=== PATIENT | female | born 1990 | race Caucasian/White ===

== ENCOUNTER → 2017-05-01 | Outpatient (CLI) | payer OTHER ==
[~2017-05-01] MED LIST: CALC600T5 PO; FERR134T PO; PRENAT PO
== END | disposition home or self-care (01) ==
LOC: OBT 14:57
PROVIDERS: ATTEND Obstetrics & Gynecology
DX: O46.8X3 Other antepartum hemorrhage, third trimester (principal); Z3A.37 37 weeks gestation of pregnancy

== ENCOUNTER 2017-05-04 21:11 | Outpatient (CLI) | payer OTHER ==
[~2017-05-04] VITALS: Ht 154.9 cm; Wt 75.2 kg
[2017-05-04 22:00] VITALS: BP 110/69; PULSE 72; RESP 18
[2017-05-04] MEDS ORDERED: PRENAT PO (22:03)
[2017-05-04] MEDS ORDERED: CALC600T5 PO (22:03)
[2017-05-04] MEDS ORDERED: FERR134T PO (22:03)
--- NOTE | 2017-05-04 23:08 | RADRPT ---
PROCEDURE: US biophysical profile. CLINICAL INDICATION: Decreased motion. Vaginal bleeding. TECHNIQUE: Multiple sonographic images of the uterus were obtained. The images were revi ewed on a PACS workstation. COMPARISON: No prior studies are available for comparison. FINDINGS: There is a single live intrauterine gestation. heart rate is 131 beats per minute. The position is cephalic. The placenta is anterior grade II with no abruption or previa. The JOSE is 25.5 cm. (Normal = 5-20 cm.) Breathing Movement: 2 Gross Body Movement: 2 Tone: 2 Qualitative Amniotic Fluid Volume: 2 TOTAL: 8 IMPRESSION: 1. The biophysical score is 8/8. RPTAT: QQ .Iain Prieto MD, MD Date Time Electronically viewed and signed by .Iain Prieto MD, on 05/04/2017 23:08 .R/
--- NOTE | 2017-05-04 23:09 | RADRPT ---
PROCEDURE: US OB. CLINICAL INDICATION: Vaginal bleeding. . TECHNIQUE: Multiple sonographic images of the uterus were obtained. The images were revi ewed on a PACS workstation. COMPARISON: No prior studies are available for comparison. FINDINGS: There is a single live intrauterine gestation. heart rate is 144 beats per minute. Measurements were made in order to determine age. The results are as follows: BPD = 9.10 cm. HC = 32.47 cm. AC = 36.62 cm. FL = 6.83 cm. Estimated weight is 3500 nineteenth +/- 528 grams. LMP growth percentile is 78 %. Menstrual age by ultrasound dates is 37 weeks 2 days. The estimated date of delivery is 05/23/2017. Position is cephalic and placenta is anterior grade 1. There is no evidence for an abruption or plac enta previa. IMPRESSION: 1. Single live intrauterine gestation of 37 weeks 2 days menstrual age by ultrasound dates. 2. The estimated date of delivery is 05/23/2017. RPTAT: QQ .Iain Prieto MD, MD Date Time Electronically viewed and signed by .Iain Prieto MD, on 05/04/2017 23:09 .R/
--- NOTE | 2017-05-04 23:31 | PN ---
Triage Information Date/Time May 04, 2017 Weeks of Gestation 37 weeks and 6 days : 2 Para: 1 Diabetes: none Hypertention: none Additional information 26-year-old with IUP at 37 weeks and 6 days with care with Dr. Trujillo presented with complaint of spotting yesterday and today some pelvic pressure. She denies any leaking of fluid or decreased movement. Patient denies any complication during her course. She was seen yesterday 4 days ago in the office and was 1 cm dilated. Her initial exam in triage /-3. She had been observed for Couple hours and repeat exam does not show any cervical change. Patient denied feeling any cramps or contractions after p.o. hydration. Objective Vital Signs Date Time Temp Pulse Resp B/P Pulse Ox O2 Delivery O2 Flow Rate FiO2 05/04/17 22:00 98.5 72 18 110/69 Room Air Heart Rate: 130's Contractions: 6-10 Minutes Apart Results/Medications Imaging Results PROCEDURE: US biophysical profile. CLINICAL INDICATION: Decreased motion. Vaginal bleeding. TECHNIQUE: Multiple sonographic images of the uterus were obtained. The images were reviewed on a PACS workstation. COMPARISON: No prior studies are available for comparison. FINDINGS: There is a single live intrauterine gestation. heart rate is 131 beats per minute. The position is cephalic. The placenta is anterior grade II with no abruption or previa. The JOSE is 25.5 cm. (Normal = 5-20 cm.) Breathing Movement: 2 Gross Body Movement: 2 Tone: 2 Qualitative Amniotic Fluid Volume: 2 TOTAL: 8 IMPRESSION: 1. The biophysical score is 8/8. RPTAT: QQ PROCEDURE: US OB. CLINICAL INDICATION: Vaginal bleeding. . TECHNIQUE: Multiple sonographic images of the uterus were obtained. The images were reviewed on a PACS workstation. COMPARISON: No prior studies are available for comparison. FINDINGS: There is a single live intrauterine gestation. heart rate is 144 beats per minute. Measurements were made in order to determine age. The results are as follows: BPD = 9.10 cm. HC = 32.47 cm. AC = 36.62 cm. FL = 6.83 cm. Estimated weight is 3500 nineteenth +/- 528 grams. LMP growth percentile is 78 %. Menstrual age by ultrasound dates is 37 weeks 2 days. The estimated date of delivery is 05/23/2017. Position is cephalic and placenta is anterior grade 1. There is no evidence for an abruption or placenta previa. IMPRESSION: 1. Single live intrauterine gestation of 37 weeks 2 days menstrual age by ultrasound dates. 2. The estimated date of delivery is 05/23/2017. Assessment/Plan IUP at 37 weeks and 6 days Not in labor testing reassuring Borderline polyhydramnios Asymptomatic' etiology of polyhydramnios unclear Labor precaution and kick count and follow-up in 1-2 days with her primary action installer recommended Follow-up with JOSE discussed with the patient Patient verbalized understanding and agreed to comply with instruction. KEEGAN ALLEN MD May 04, 2017 23:31
--- NOTE | 2017-05-05 00:20 | TRIAGE ---
OB Triage Datetime Report Generated by CPN: 05/05/2017 00:20 Datetime: 05/04/2017 22:12 Stage of : OB Triage Labor Evaluation Frequency: 2-8 Monitor Mode: External Duration (sec)2399: 60 Quality: Mild Pattern: Normal: <= 5 Contractions in 10 Minutes Resting Tone [place]: Relaxed Heart Rate Monitor Mode: External US FHR Baseline Changes: No Baseline Change Variability: Moderate 6-25 bpm Accelerations: 15X15 Decelerations: None Category: Category I Vaginal Exam Dilatation (cms): 1.0 Effacement (%): 50 Station: -3 Exam By: E Binh Membrane Status: Intact Amniotic Fluid Amount: None Vaginal Bleeding: None Pool: Negative Nitrazine: Negative Cervix, Consistency: Moderate Cervix, Position: Posterior Presentation 'A': Cephalic Datetime: 05/04/2017 22:05 EGA: 37.6 Datetime: 05/04/2017 21:54 Time of Arrival: 05/04/2017 21:02 Arrived By: Ambulatory Arrived From: Home Chief Complaint: w/ c/o vag pressure now and spotting yesterday Movement: Present Contractions: Occasional Rupture of Membranes: Denies Vaginal Bleeding: None Vaginal Discharge: Present Recent Sexual Intercouse: Denies Abdominal Trauma: Not Applicable Patient Complaints: Cramping Time Provider Notified: 05/04/2017 22:22 Provider Notified: Dr Nelson Initial Plan: EFM, SVE Datetime: 05/04/2017 21:28 Stage of : OB Triage Maternal Assessment Level of Consciousness: Fully Conscious Headache: Denies Blurred Vision: No Respiratory Effort: Unlabored Nausea/Vomiting: Denies RUQ Epigastric Pain: Denies Facial Edema: None Monitor Mode: External Resting Tone [place]: Relaxed Heart Rate Monitor Mode: External US Comments: FHT 140 Pain Assessment Pain Scale: 1 Pain Presence: Intermittent Pain Type: Pressure Pain Location: Abdomen
== END 2017-05-04 23:38 | disposition home or self-care (01) ==
LOC: OBT 21:11 → L-D 21:14 → OBT 23:38
PROVIDERS: ATTEND Obstetrics & Gynecology
DX: O62.9 Abnormality of forces of labor, unspecified (principal); Z3A.37 37 weeks gestation of pregnancy
CPT/HCPCS: 76815; 76818; G0463

== ENCOUNTER 2017-05-06 14:42 | Inpatient (IN) | payer OTHER ==
[~2017-05-06] VITALS: Ht 154.9 cm; Wt 74.3 kg
[2017-05-06] MEDS ORDERED: LACTATED RINGER'S 1,000 ML IV SCH (15:19)
[2017-05-06 15:28] VITALS: Ht 154.9 cm; Wt 74.3 kg
[2017-05-06] MEDS ORDERED: BUTORPHANOL 2 MG INJ IV PRN (15:30)
[2017-05-06] MEDS ORDERED: LIDOCAINE 1% (MPF) 30 ML INJ INJ PRN (15:30)
[2017-05-06] MEDS ORDERED: MISOPROSTOL 200 MCG TAB PR PRN ×2 (15:30→21:30)
[2017-05-06] MEDS ORDERED: LACTATED RINGER'S 1,000 ML IV PRN (15:30)
[2017-05-06] MEDS ORDERED: IBUPROFEN 600 MG TAB PO PRN (15:30)
[2017-05-06] MEDS ORDERED: CARBOPROST 250 MCG INJ IM PRN ×2 (15:30→21:30)
[2017-05-06] MEDS ORDERED: METHYLERGONOVINE 0.2 MG INJ IM PRN ×2 (15:30→21:30)
[2017-05-06] MEDS ORDERED: OXYTOCIN 30 UNITS/LR 500 ML IV SCH ×3 (15:30→17:00)
[2017-05-06] MEDS ORDERED: OXYTOCIN 30 UNITS/LR 500 ML IV PRN ×2 (15:30→21:30)
[2017-05-06 16:06] LABS: ADD SCAN DIFF NO
[2017-05-06 16:10] LABS: BASOPHILS % 0.2 % (0.0-2.0); EOSINOPHILS # 0.1 10^3/ul (0.0-0.5); EOSINOPHILS % 0.5 % (0.0-7.0); HEMATOCRIT 33.5 % (37.0-47.0); HEMOGLOBIN 12.1 g/dl (12.0-16.0); LYMPHOCYTES # 0.7 10^3/ul (0.8-2.9); LYMPHOCYTES % 7.5 % (15.0-51.0); MEAN CORPUSCULAR HEMOGLOBIN 31.4 pg (29.0-33.0); MEAN CORPUSCULAR HGB CONC 36.1 g/dl (32.0-37.0); MEAN PLATELET VOLUME 10.9 fl (7.4-10.4); MONOCYTE # 0.8 10^3/ul (0.3-0.9); MONOCYTES % 8.4 % (0.0-11.0); NEUTROPHIL # 7.5 10^3/ul (1.6-7.5); NEUTROPHILS % 82.3 % (39.0-77.0); PLATELET COUNT 211 10^3/UL (140-415); RED BLOOD COUNT 3.85 10^6/ul (4.20-5.40); RED CELL DISTRIBUTION WIDTH 12.7 % (11.5-14.5); WHITE BLOOD COUNT 9.1 10^3/ul (4.8-10.8)
[2017-05-06 16:22] LABS: INR 0.9; PROTIME 12.1 Sec (12.2-14.2); PT RATIO 0.9
[2017-05-06 16:23] LABS: PARTIAL THROMBOPLASTIN TIME 25.8 Sec (25.0-35.0)
[2017-05-06] MEDS ORDERED: AMPICILLIN 2 GM/NS (PMX) 100 ML IVPB ONE (17:00)
[2017-05-06] MEDS ORDERED: AMPICILLIN 1 GM/NS (PMX) 50 ML IVPB SCH ×2 (17:00→21:00)
--- NOTE | 2017-05-06 17:33 | TRIAGE ---
OB Triage Datetime Report Generated by CPN: 05/06/2017 17:33 Datetime: 05/06/2017 17:16 Membrane Status: Ruptured Datetime: 05/06/2017 17:00 Frequency: 0 Monitor Mode: External Duration (sec)2399: 0 Pattern: Normal: <= 5 Contractions in 10 Minutes Resting Tone [place]: Relaxed Contraction Comments: NONE NOTED. ABDOMEN SOFT TO PALPATION FHR Baseline Rate: 145 Monitor Mode: External US FHR Baseline Changes: No Baseline Change Variability: Moderate 6-25 bpm Accelerations: 15X15 Decelerations: None Category: Category I Datetime: 05/06/2017 16:17 Dilatation (cms): 3.0 Effacement (%): 80 Station: -2 Exam By: DDUNN Vaginal Bleeding: None Cervix, Consistency: Moderate Cervix, Position: Midposition Datetime: 05/06/2017 16:04 Assessment Type: Admission Assessment Time of Arrival: 05/06/2017 14:38 EGA: 38.1 Arrived By: Ambulatory Arrived From: Emergency Dept Chief Complaint: SROM Movement: Present Contractions: Regular Rupture of Membranes: Ruptured Vaginal Bleeding: None Vaginal Discharge: Denies Recent Sexual Intercouse: Denies Abdominal Trauma: Not Applicable Patient Complaints: Contractions Time Provider Notified: 05/06/2017 15:06 Provider Notified: Omar Initial Plan: NST Level of Consciousness: Fully Conscious DTR's/Clonus: DTRs 2+; No Clonus Headache: Denies Blurred Vision: No Respiratory Effort: Unlabored; Regular Rhythm; Equal Expansion Breath Sounds, Left: Clear and Equal Breath Sounds, Right: Clear and Equal Nausea/Vomiting: Denies RUQ Epigastric Pain: Denies Lower Extremities Edema: None Degree: None Upper Extremities Edema: None Degree: None Facial Edema: None History of Falling: (0) No Secondary Diagnosis: (0) No Ambulatory Aid: (0) Bedrest/Nurse Assist IV Therapy: (20) Yes Gait: (0) Normal/Bedrest/Immobile Mental Status: (0) Oriented to Own Ability Fall Score: 20 Fall Risk Score Definition: No Risk: No action required Pain Scale: 3 Pain Presence: Intermittent Pain Location: Abdomen Pain Goal: 3 Datetime: 05/06/2017 15:15 Frequency: 2-4 Monitor Mode: External Duration (sec)2399: 50-90 Quality: Moderate Pattern: Normal: <= 5 Contractions in 10 Minutes Resting Tone [place]: Relaxed FHR Baseline Rate: 140 Monitor Mode: External US FHR Baseline Changes: No Baseline Change Variability: Moderate 6-25 bpm Accelerations: 15X15 Decelerations: None Category: Category I Pain Scale: 3 Pain Presence: Intermittent Pain Type: Contraction; Pressure Pain Location: Abdomen; Back Pain Goal: 0 Pain Relief Measures: Comfort Measures Datetime: 05/06/2017 15:01 Dilatation (cms): 3.5 Effacement (%): 90 Station: -2 Exam By: Chhaya ROSEN Membrane Status: Ruptured Datetime: 05/06/2017 14:45 Assessment Type: Triage Level of Consciousness: Fully Conscious DTR's/Clonus: DTRs 2+; No Clonus Headache: Denies Blurred Vision: No Respiratory Effort: Unlabored; Regular Rhythm; Equal Expansion Breath Sounds, Left: Clear and Equal Breath Sounds, Right: Clear and Equal Nausea/Vomiting: Denies RUQ Epigastric Pain: Denies Lower Extremities Edema: None Degree: None Upper Extremities Edema: None Degree: None Facial Edema: None History of Falling: (0) No Secondary Diagnosis: (0) No Ambulatory Aid: (0) Bedrest/Nurse Assist IV Therapy: (0) No Gait: (0) Normal/Bedrest/Immobile Mental Status: (0) Oriented to Own Ability Fall Score: 0 Fall Risk Score Definition: No Risk: No action required Datetime: 05/04/2017 23:09 Stage of : OB Triage Monitor Mode: External Quality: Mild Pattern: Normal: <= 5 Contractions in 10 Minutes Resting Tone [place]: Relaxed FHR Baseline Rate: 135 Monitor Mode: External US FHR Baseline Changes: No Baseline Change Variability: Moderate 6-25 bpm Accelerations: 15X15 Datetime: 05/04/2017 22:22 Stage of : OB Triage Datetime: 05/04/2017 22:05 Time of Arrival: 05/06/2017 15:25 EGA: 38.1 Arrived By: Ambulatory Arrived From: Home
[2017-05-06] MEDS ORDERED: ONDANSETRON 4 MG INJ IV PRN ×2 (19:30→21:30)
[2017-05-06] MEDS ORDERED: FENTAnyl 2MCG/ML-ROPIV 0.2% 100 ML BAG EPI SCH (19:30)
[2017-05-06] MEDS ORDERED: NALOXONE (0.4 MG/ML) INJ IV PRN (19:30)
[2017-05-06] MEDS ORDERED: DIPHENHYDRAMINE 50 MG INJ IV PRN ×2 (19:30→21:30)
[2017-05-06] MEDS ORDERED: LACTATED RINGER'S 1,000 ML IV* SCH (21:26)
[2017-05-06] MEDS ORDERED: WITCH HAZEL/GLYCERIN PAD PR PRN (21:30)
[2017-05-06] MEDS ORDERED: DIBUCAINE 1% 30 GM OINT PR PRN (21:30)
[2017-05-06] MEDS ORDERED: LANOLIN 7 GM TUBE TOP PRN (21:30)
[2017-05-06 23:35] VITALS: BP 115/78; PULSE 73; RESP 18
[2017-05-07] MEDS: BENZOCAINE 20% 56 ML SPRAY TOP PRN (00:31)
[2017-05-07] MEDS: IBUPROFEN 600 MG TAB PO SCH ×5 (00:31→20:38)
[2017-05-07 04:00] VITALS: BP 96/55; PULSE 89; RESP 18
[2017-05-07 07:41] LABS: ADD SCAN DIFF NO
[2017-05-07 07:46] LABS: BASOPHILS % 0.3 % (0.0-2.0); EOSINOPHILS # 0.1 10^3/ul (0.0-0.5); EOSINOPHILS % 0.8 % (0.0-7.0); HEMATOCRIT 31.2 % (37.0-47.0); LYMPHOCYTES # 0.9 10^3/ul (0.8-2.9); LYMPHOCYTES % 7.8 % (15.0-51.0); MEAN CORPUSCULAR HEMOGLOBIN 31.4 pg (29.0-33.0); MEAN CORPUSCULAR HGB CONC 35.3 g/dl (32.0-37.0); MEAN CORPUSCULAR VOLUME 89.1 fl (82.0-101.0); MEAN PLATELET VOLUME 11.3 fl (7.4-10.4); MONOCYTE # 1.1 10^3/ul (0.3-0.9); MONOCYTES % 9.9 % (0.0-11.0); NEUTROPHIL # 8.9 10^3/ul (1.6-7.5); NEUTROPHILS % 80.1 % (39.0-77.0); PLATELET COUNT 186 10^3/UL (140-415); RED CELL DISTRIBUTION WIDTH 12.7 % (11.5-14.5); WHITE BLOOD COUNT 11.1 10^3/ul (4.8-10.8)
[2017-05-07 08:34] VITALS: BP 102/66; PULSE 17; RESP 18
[2017-05-07] MEDS: SENNA/DOCUSATE NA (8.6MG/50MG) TAB PO SCH ×2 (09:00→20:38)
[2017-05-07 16:00] VITALS: BP 117/70; PULSE 17; RESP 18
[2017-05-07 20:00] VITALS: BP 118/64; PULSE 70; RESP 20
[2017-05-08 04:40] VITALS: BP 110/60; PULSE 70; RESP 20
[2017-05-08] MEDS: IBUPROFEN 600 MG TAB PO SCH ×2 (05:33→12:24)
[2017-05-08 08:00] VITALS: BP 95/63; PULSE 66; RESP 16
[2017-05-08] MEDS: SENNA/DOCUSATE NA (8.6MG/50MG) TAB PO SCH (09:00)
[2017-05-08] MEDS ORDERED: DIPHTH/TET/ACEL PERTUSS (ADULT) 0.5 ML VIAL IM* ONE (09:00)
[2017-05-08] MEDS: BENZOCAINE 20% 56 ML SPRAY TOP PRN (12:52)
[2017-05-08 13:06] LABS: ADD SCAN DIFF NO
[2017-05-08 13:12] LABS: BASOPHILS % 0.4 % (0.0-2.0); EOSINOPHILS # 0.2 10^3/ul (0.0-0.5); EOSINOPHILS % 2.4 % (0.0-7.0); HEMATOCRIT 32.2 % (37.0-47.0); HEMOGLOBIN 10.9 g/dl (12.0-16.0); LYMPHOCYTES # 0.7 10^3/ul (0.8-2.9); LYMPHOCYTES % 9.6 % (15.0-51.0); MEAN CORPUSCULAR HEMOGLOBIN 30.2 pg (29.0-33.0); MEAN CORPUSCULAR HGB CONC 33.9 g/dl (32.0-37.0); MEAN CORPUSCULAR VOLUME 89.2 fl (82.0-101.0); MEAN PLATELET VOLUME 10.7 fl (7.4-10.4); MONOCYTE # 0.5 10^3/ul (0.3-0.9); MONOCYTES % 6.8 % (0.0-11.0); NEUTROPHIL # 5.7 10^3/ul (1.6-7.5); NEUTROPHILS % 79.3 % (39.0-77.0); PLATELET COUNT 195 10^3/UL (140-415); RED BLOOD COUNT 3.61 10^6/ul (4.20-5.40); RED CELL DISTRIBUTION WIDTH 13.1 % (11.5-14.5); WHITE BLOOD COUNT 7.2 10^3/ul (4.8-10.8)
--- NOTE | 2017-05-11 08:11 | PREOPHP ---
DATE OF ADMISSION: 05/06/2017 HISTORY OF PRESENT ILLNESS: This is a 26-year-old lady, 2 para 1, EDC May 19, 2017, at 38 and 6/7 weeks, admitted in active labor. PAST MEDICAL HISTORY: No history of diabetes, TB, asthma. ALLERGIES: NO ALLERGIES. SOCIAL HISTORY: Patient does not smoke. She does not drink. She does not take any drugs except her iron and vitamins. GYNECOLOGIC HISTORY: Menarche at age 9. Every 28 days, interval for 3-4 days' duration and moderate in amount. FAMILY HISTORY: Noncontributory. OBSTETRIC HISTORY: She is 2 para 1. Her first delivery was 6 years ago. REVIEW OF SYSTEMS: CARDIOVASCULAR: No chest pain. RESPIRATORY: No cough. GASTROINTESTINAL: No diarrhea. No vomiting. GENITOURINARY: No dysuria. PHYSICAL EXAMINATION: GENERAL: Reveals a conscious coherent lady in no acute distress. VITAL SIGNS: Blood pressure 120/80. Pulse rate 80 per minute. Respirations 16 per minute. LUNGS: Breath sounds within normal limits. ABDOMEN: Soft. Fundal height 37 cm. heart tones 140 per minute. PELVIC: Done by nurse on admission revealed the cervix to be 3-4 cm dilated and 100 percent effaced, station 0, in cephalic presentation with a bag of water intact. Also the patient claims that she is leaking bag of water since 2:50 to 3 a.m. May 06, 2017. EXTREMITIES: No pedal edema. ADMITTING DIAGNOSIS: 38 and 6/7-week intrauterine in labor. PLAN: To be observed for progress of labor and to be given Pitocin augmentation and ultrasound done as well. The plans were explained to the patient as to both for vaginal delivery. There is benefit and alternative to vaginal delivery as was explained to them. Both understood. They are agreeing totally. They wanted to go for vaginal delivery. Also this patient received a saddle plus labor epidural and she progressed well. At 7:42 p.m., she was 8-10 cm dilated and the estimated weight by ultrasound was 7 pounds 11 ounces. Dictated By: Lis Nelson MD /vignesh/mohini /Document#: [id number] CC: Lis Nelson MD;*[facility]*
--- NOTE | 2017-05-16 03:59 | OPR ---
DATE OF OPERATION: 05/06/2017 REASON FOR ADMISSION: This is a 26-year-old lady, 2, para 1, EDC 05/19/2017, admitted to labor and delivery area in labor. HISTORY AND PHYSICAL: See the dictated history and physical. DIAGNOSIS: 7 weeks uterine in labor. PROGRESS OF LABOR: See the dictated history and physical. DELIVERY NOTE: Patient progressed well, had normal spontaneous vaginal delivery, and delivered a healthy baby girl, Apgars 9 and 9 at 21:10 p.m., 05/06/2017, weighing 6 pounds, 9 ounces, 17.5 inches long over a 2nd degree midline perineal tear. The placenta was delivered spontaneously and complete. Manual exploration of the uterus revealed no membranes left behind. Cervix, vagina, and bulbar were free of hematoma. The position was occiput anterior. There were 3 vessels in the cord. The placenta was normal with a small in size 2nd degree midline perineal tear was repaired in layers using 2-0 chromic with labor epidural and 1 percent Xylocaine. Patient tolerated the delivery well. Estimated blood loss less than 500 cc. Vital signs were stable during and after the delivery. Dictated By: Lis Nelson MD /vignesh/bjc /Document#: [id number]
== END 2017-05-08 17:20 | disposition home or self-care (01) | DRG 775 ==
LOC: OBT 14:42 → L-D 14:43 → OBT 15:10 → L-D 15:17 → PP1 23:21
PROVIDERS: ADMIT Obstetrics & Gynecology; ATTEND Obstetrics & Gynecology
PROC: 10E0XZZ Delivery of Products of Conception, External Approach (ICD-10-PCS; principal; 2017-05-06)
PROC: 0KQM0ZZ Repair Perineum Muscle, Open Approach (ICD-10-PCS; 2017-05-06)
PROC: 3E033VJ Introduction of Other Hormone into Peripheral Vein, Percutaneous Approach (ICD-10-PCS; 2017-05-06)
DX: O70.1 Second degree perineal laceration during delivery (principal); Z37.0 Single live birth; Z3A.38 38 weeks gestation of pregnancy
CPT/HCPCS: 62319; 85025; 85610; 85730; 86592; 86900; 86901; 90715; G0463; J0290; J0595; J2590; J3010; J7120

== ENCOUNTER 2019-01-17 17:04 | Inpatient (IN) | payer OTHER ==
[~2019-01-17] VITALS: Ht 152.4 cm; Wt 77.2 kg
[2019-01-17] MEDS ORDERED: LACTATED RINGER'S 1,000 ML IV PRN (17:37)
[2019-01-17] MEDS ORDERED: LACTATED RINGER'S 1,000 ML IV SCH (17:37)
[2019-01-17 17:42] VITALS: Ht 152.4 cm; Wt 77.2 kg
[2019-01-17] MEDS ORDERED: BUTORPHANOL 2 MG INJ IV PRN (18:00)
[2019-01-17] MEDS ORDERED: OXYTOCIN 30 UNITS/LR 500 ML IV SCH ×3 (18:00→20:30)
[2019-01-17] MEDS ORDERED: CARBOPROST 250 MCG INJ IM PRN (18:00)
[2019-01-17] MEDS ORDERED: MISOPROSTOL 200 MCG TAB PR PRN (18:00)
[2019-01-17] MEDS ORDERED: LIDOCAINE 1% (MPF) 30 ML INJ INJ PRN (18:00)
[2019-01-17] MEDS ORDERED: IBUPROFEN 600 MG TAB PO PRN (18:00)
[2019-01-17] MEDS ORDERED: OXYTOCIN 30 UNITS/LR 500 ML IV PRN (18:00)
[2019-01-17] MEDS ORDERED: METHYLERGONOVINE 0.2 MG INJ IM PRN (18:00)
[2019-01-17] MEDS ORDERED: BUTORPHANOL 1 MG INJ IV PRN (18:00)
[2019-01-17] MEDS ORDERED: AMPICILLIN 2 GM/NS (PMX) 100 ML IV ONE (20:30)
--- NOTE | 2019-01-17 22:40 | PREAC ---
Date/Time of Note Date/Time of Note DATE: 01/17/19 TIME: 22:39 Anesthesia Eval and Record Evaluation Time Pre-Procedure Interview DATE: 01/17/19 TIME: 22:39 Age 28 Sex female NPO: 8 hrs Preoperative diagnosis labor pain Planned procedure epidural Past Medical History Past Medical History: Includes : Gestational age: (39.1) Surgery & Anesthesia Issues No known issue Meds Anticoagulation: No Beta Tony within 24 hr: No Reason Beta Tony not given: Pt. not on B-Tony Reported Medications Calcium Carbonate (CALCIUM) 600 Mg Tablet, 600 MG PO DAILY, TAB 05/04/17 Ferrous Sulfate (Iron) 134 Mg Tablet, 134 MG PO DAILY, TAB 05/04/17 Multivit/Min/Fol Ac/Iron/Pren* ( S*) 1 Tab Tab, 1 TAB PO DAILY, TAB 05/04/17 Current Medications Lactated Ringer's 1,000 ml @ 125 mls/hr Q8H IV Last administered on 01/17/19at 17:57; Admin Dose 125 MLS/HR; Start 01/17/19 at 17:37 Butorphanol Tartrate (Stadol) 1 mg Q2H PRN IV .PAIN; Start 01/17/19 at 18:00 Butorphanol Tartrate (Stadol) 2 mg Q2H PRN IV .PAIN; Start 01/17/19 at 18:00 Lidocaine (Xylocaine 1% (Mpf)) 30 ml ONCE PRN INJ .EPISIOTOMY; Start 01/17/19 at 18:00 Oxytocin/Lactated Ringer's 500 ml @ 500 mls/hr ONCE POST IV ; Start 01/17/19 at 18:00 Oxytocin/Lactated Ringer's 500 ml @ 125 mls/hr POST IV ; Start 01/17/19 at 18:00 Ibuprofen (Motrin) 600 mg ONCE PRN PO .PAIN 1-5; Start 01/17/19 at 18:00 Lactated Ringer's 1,000 ml @ 2,000 mls/hr Q30M PRN IV .ANESTHESIA Last administered on 01/17/19at 21:32; Admin Dose 2,000 MLS/HR; Start 01/17/19 at 17:37 Oxytocin/Lactated Ringer's 500 ml @ 0 mls/hr ONCE PRN IV .VAGINAL BLEEDING; Start 01/17/19 at 18:00 Methylergonovine Maleate (Methergine) 0.2 mg ONCE PRN IM .VAGINAL BLEEDING; Start 01/17/19 at 18:00 Carboprost Tromethamine (Hemabate) 250 mcg ONCE PRN IM .VAGINAL BLEEDING; Start 01/17/19 at 18:00 Misoprostol (Cytotec) 1,000 mcg ONCE PRN [place] .VAGINAL BLEEDING; Start 01/17/19 at 18:00 Ampicillin 50 ml @ 100 mls/hr Q4H IV ; Start 01/18/19 at 00:30 Mineral Oil (Muri-Lube) 10 ml ONCE PRN TOP DELIVERY; Start 01/18/19 at 00:00; Stop 01/18/19 at 23:00 Oxytocin/Lactated Ringer's 500 ml @ 0 mls/hr FOR INDUCTION IV Last administered on 01/17/19at 20:34; Admin Dose 1 MLS/HR; Start 01/17/19 at 20:30 Meds reviewed: Yes Allergies Coded Allergies: shellfish derived (Verified Allergy, Intermediate, SWOLLEN FACE WITH RASH, 01/17/19) Allergies Reviewed: Yes Labs/Studies Labs Reviewed: Reviewed by anesthesiologist Result Diagram: 01/17/19 1730 Laboratory Tests 01/17/19 17:30 Blood Bank Test 01/17/19 17:30 Antibody Screen NEGATIVE Blood Type A POSITIVE Rh Immune Globulin Candidate NO test: Positive Studies: ECG (n/a), CXR (n/a) Pre-procedure Exam Airway: Adequate mouth opening Mallampati: Mallampati I Teeth: Normal Lung: Normal Heart: Normal ASA Physical Status ASA physical status: 2 Emergency: None Planned Anesthetic Neuraxial: Epidural Pre-operative Attestations Prior to commencing anesthesia and surgery, the patient was re-evaluated, there was verification of: *The patient's identity *The results of appropriate recent lab work and preoperative vital signs *The above evaluation not changing prior to induction *Anesthetic plan, risk benefits, alternative and complications discussed with patient/family; questions answered; patient/family understands, accepts and wishes to proceed. SAMUEL WINSTON MD Jan 17, 2019 22:40
[2019-01-17] MEDS ORDERED: FENTAnyl 2MCG/ML-ROPIV 0.2% 100 ML BAG EPI SCH (23:00)
[2019-01-17] MEDS ORDERED: NALOXONE (0.4 MG/ML) INJ IV PRN (23:00)
--- NOTE | 2019-01-17 23:00 | PAC ---
Date/Time of Note Date/Time of Note DATE: 01/17/19 TIME: 22:59 Post-Anesthesia Notes Post-Anesthesia Note Last documented vital signs BP 118/78 hr 85 sAT 97% rR19 TEMP 98.4 Activity: WNL Respiratory function: WNL Cardiovascular function: WNL Mental status: Baseline Pain reasonably controlled: Yes Hydration appropriate: Yes Nausea/Vomiting absent: No ASMUEL WINSTON MD Jan 17, 2019 23:00
[2019-01-18] MEDS ORDERED: MINERAL OIL LIGHT 10 ML VIAL TOP PRN
[2019-01-18] MEDS ORDERED: AMPICILLIN 1 GM/NS (PMX) 50 ML IV SCH (00:30)
--- NOTE | 2019-01-18 01:19 | LDN ---
Date/Time of Note Date/Time of Note DATE: 01/18/19 TIME: 01:14 Delivery Summary I was called for covering for delivery since the patient had been completed and had urge to push patient had been undergoing induction of labor. Noted the patient have decelerations during second stage. Due to ineffective maternal pushing efforts and decelerations decision was made to proceed with VAVD Risks and benefits discussed After applying the vaccum on the vertex in about 30 seconds with maternal pushing efforts baby was delivered in OP position. first degree perineal laceration noted and repaired using 3-0 chromic Hemostasis complete Fundus was firm EBL: 300 cc Placenta later delivered complete and intact No complications Weeks of Gestation 39 weeks Assisted Vaginal Delivery: Vacuum Placenta Delivered: Spontaneously Meconium: none Episiotomy: No Indication for episiotomy N/A Perineal laceration: 1 Laceration repair: First-degree perineal laceration repaired using 3-0 chromic Anesthesia type: Epidural Estimated blood loss: 300 Sponge & Needle done & correct: Yes All needle counts correct: Yes Any foreign bodies felt in the: No Delivery Information Sex Sex: female Apgars 1 Minute: 9 5 Minute: 9 Suctioning Nose & mouth suctioned at kate: Yes Delee suction performed: Yes Umbilical Cord Cord presentations: no nuchal cord Cord Blood was obtained: Yes KEEGAN ALLEN MD Jan 18, 2019 01:19
[2019-01-18] MEDS ORDERED: OXYTOCIN 30 UNITS/LR 500 ML IV SCH (01:20)
[2019-01-18] MEDS ORDERED: NACL 0.9% 3 ML SYG IV SCH (01:30)
[2019-01-18] MEDS ORDERED: CARBOPROST 250 MCG INJ IM PRN (01:30)
[2019-01-18] MEDS ORDERED: DIPHENHYDRAMINE 25 MG CAP PO PRN (01:30)
[2019-01-18] MEDS ORDERED: MISOPROSTOL 200 MCG TAB PR PRN (01:30)
[2019-01-18] MEDS ORDERED: ONDANSETRON 4 MG INJ IV PRN (01:30)
[2019-01-18] MEDS ORDERED: HYDROCODONE/APAP (5/325) TAB PO PRN (01:30)
[2019-01-18] MEDS ORDERED: OXYTOCIN 30 UNITS/LR 500 ML IV PRN (01:30)
[2019-01-18] MEDS ORDERED: ZOLPIDEM 5 MG TAB PO PRN (01:30)
[2019-01-18] MEDS: SENNA/DOCUSATE NA (8.6MG/50MG) TAB PO SCH ×3 (01:30→20:41)
[2019-01-18] MEDS: IBUPROFEN 600 MG TAB PO SCH ×5 (02:29→23:15)
[2019-01-18 03:10] VITALS: BP 116/76; RESP 18
[2019-01-18] MEDS: LANOLIN HPA 1 PKT TOP PRN ×2 (06:03→09:24)
[2019-01-18] MEDS: WITCH HAZEL/GLYCERIN PAD PR PRN (06:04)
[2019-01-18 07:35] VITALS: BP 112/59; PULSE 86; RESP 19
[2019-01-18] MEDS: PRENATAL VITAMIN PO SCH (09:24)
[2019-01-18 12:00] VITALS: BP 109/57; PULSE 78; RESP 17
[2019-01-18 16:00] VITALS: BP 111/67; PULSE 78; RESP 18
[2019-01-18 20:20] VITALS: BP 108/53; PULSE 87; RESP 18
[2019-01-19] MEDS ORDERED: MAGNESIUM HYDROXIDE 30ML CUP PO ONE (01:00)
[2019-01-19] MEDS ORDERED: BISACODYL 10 MG SUPP PR ONE (01:00)
[2019-01-19] MEDS ORDERED: BENZOCAINE 20% 56 ML SPRAY TOP PRN (01:00)
[2019-01-19] MEDS: WITCH HAZEL/GLYCERIN PAD PR PRN (01:44)
[2019-01-19 04:00] VITALS: BP 108/74; PULSE 81; RESP 20
[2019-01-19] MEDS: IBUPROFEN 600 MG TAB PO SCH ×4 (06:19→23:45)
[2019-01-19 07:50] VITALS: BP 103/55; PULSE 87; RESP 17
[2019-01-19] MEDS: SENNA/DOCUSATE NA (8.6MG/50MG) TAB PO SCH ×2 (09:11→21:37)
[2019-01-19] MEDS: LANOLIN HPA 1 PKT TOP PRN (09:11)
[2019-01-19] MEDS: PRENATAL VITAMIN PO SCH (09:11)
[2019-01-19] MEDS ORDERED: DIBUCAINE 1% 30 GM OINT TOP PRN (15:00)
[2019-01-19 16:05] VITALS: BP 117/75; PULSE 81; RESP 18
--- NOTE | 2019-01-19 16:45 | PN ---
Date/Time of Note Date/Time of Note DATE: 01/19/19 TIME: 16:43 Assessment/Plan VTE Prophylaxis Risk score (from Nsg)>0 risk: 1 SCD applied (from Ns): No SCD contraindicated: low risk/ambulating Pharmacological prophylaxis: NA/contraindicated Pharm contraindication: low risk/ambulating Lines/Catheters IV Catheter Type (from Nrs): Peripheral IV Assessment/Plan Assessment/Plan POST DAY 1 HOME TOMORROW RETURN TO CLINIC IN 2 WEEKS CONTINUE WITH VITAMINS OD AND FERROUS SULFATE PO TID DIET ADVISED COUNSELED INSTRUCTED CALL OFFICE IF THERE IS ANY PROBLEMS OR CONCERN Result Diagram: 01/18/19 0636 Subjective 24 Hr Interval Summary Free Text/Dictation FEELS GOOD, GOOD URINE OUTPUT, GOOD BOWEL MOVEMENT Exam/Review of Systems Exam Vitals Vital Signs Date Temp Pulse Resp B/P (MAP) Pulse Ox O2 O2 Flow FiO2 Time Delivery Rate 01/19/19 97.9 87 17 103/55 Room Air 07:50 (71) Intake and Output 01/18/19 01/18/19 01/19/19 1515:00 23:00 07:00 IntakeIntake Total 355 ml 145 ml OutputOutput Total 450 ml BalanceBalance -95 ml 145 ml Exam VITAL SIGNS STABLE: YES AFEBRILE: YES BREAST NOT ENGORGED, NON-TENDER, NO APPRECIABLE MASS: YES LUNGS CLEAR, NO RALES, WHEEZES, RHONCHI: YES SINUS RHYTHM WITHOUT MURMUR: YES ABDOMEN: NON-TENDER FUNDUS: BELOW UMBILICUS BOWEL SOUNDS: PRESENT UTERUS: FIRM TEAR HEALING WELL LOCHIA: LIGHT DEEP TENDON REFLEXES: 0 EXTREMITIES: NO CALF TENDERNESS EDEMA SCALE: NONE Medications Medication Current Medications IV Flush (NS 3 ml) 3 ml PER PROTOCOL IV ; Start 01/18/19 at 01:30 Ibuprofen (Motrin) 600 mg Q6 PO Last administered on 01/19/19at 11:40; Admin Dose 600 MG; Start 01/18/19 at 01:30 Acetaminophen/ Hydrocodone Bitart ([place] (5/325)) 1 tab Q4H PRN PO .PAIN 1-5 Last administered on 01/18/19at 09:23; Admin Dose 1 TAB; Start 01/18/19 at 01:30 Ondansetron HCl (Zofran Inj) 4 mg Q6H PRN IV NAUSEA/VOMITING; Start 01/18/19 at 01:30 Diphenhydramine HCl (Benadryl) 25 mg Q6H PRN PO .PRUTITUS; Start 01/18/19 at 01:30 Zolpidem Tartrate (Ambien) 5 mg QHS PRN PO .INSOMNIA; Start 01/18/19 at 01:30 Senna/Docusate Sodium (Senokot-S) 1 tab BID PO Last administered on 01/19/19 09:11; Admin Dose 1 TAB; Start 01/18/19 at 01:30 Witch Nhi/ Glycerin (Tucks Pads) 1 pad BEDSIDE MEDICATION PRN [place] .HEMORRHOID/EPISIOTOMY PAIN Last administered on 01/19/19 01:44; Admin Dose 40 PAD; Start 01/18/19 at 01:30 Lanolin (Lanolin Hpa) 1 applic BEDSIDE MEDICATION PRN TOP .NIPPLES Last administered on 01/19/19 09:11; Admin Dose 1 APPLIC; Start 01/18/19 at 01:30 Oxytocin/Lactated Ringer's 500 ml @ 0 mls/hr ONCE PRN IV .VAGINAL BLEEDING; Start 01/18/19 at 01:30 Carboprost Tromethamine (Hemabate) 250 mcg ONCE PRN IM .VAGINAL BLEEDING; Start 01/18/19 at 01:30 Misoprostol (Cytotec) 1,000 mcg ONCE PRN [place] .VAGINAL BLEEDING; Start 01/18/19 at 01:30 Prenat Multivit/ Car Racer/Iron/Folic Ac () 1 tab DAILY PO Last administered on 01/19/19 09:11; Admin Dose 1 TAB; Start 01/18/19 at 09:00 Benzocaine (Dermoplast [place]) 1 spray PRN PRN TOP VAGINAL PAIN Last administered on 01/19/19 01:36; Admin Dose 56 SPRAY; Start 01/19/19 at 01:00 Dibucaine (Nupercainal) 1 applic TID PRN TOP HEMORROID PAIN/ITCHING Last administered on 01/19/19 15:14; Admin Dose 1 APPLIC; Start 01/19/19 at 15:00 LUZ GREY MD Jan 19, 2019 16:44
[2019-01-19 20:00] VITALS: BP 125/73; PULSE 87; RESP 18
[2019-01-20] VITALS: BP 104/54; PULSE 86; RESP 18
[2019-01-20 04:15] VITALS: BP 104/52; PULSE 82; RESP 18
[2019-01-20] MEDS: IBUPROFEN 600 MG TAB PO SCH ×2 (05:36→12:04)
[2019-01-20 08:30] VITALS: BP 100/68; PULSE 73; RESP 18
[2019-01-20] MEDS: SENNA/DOCUSATE NA (8.6MG/50MG) TAB PO SCH (09:42)
[2019-01-20] MEDS: WITCH HAZEL/GLYCERIN PAD PR PRN (09:42)
[2019-01-20] MEDS: PRENATAL VITAMIN PO SCH (09:42)
--- NOTE | 2019-01-21 15:43 | PREOPHP ---
DATE OF ADMISSION: 01/17/2019 HISTORY OF PRESENT ILLNESS: This is a 28-year-old lady, 3, para 2, EDC 01/23/2019 at 39 and 1/7 weeks, admitted to labor and delivery area in early labor with mild -induced hypertensio n. She started to have contractions about a few hours prior to admission and her blood pressure in [facility] on the day of admission was 148/98. So, she was admitted for augmentation. PAST PERSONAL HISTORY: No history of diabetes, TB, asthma. ALLERGIES: NO ALLERGIES. SOCIAL HISTORY: The patient does not smoke. She does not drink. MEDICATIONS: She does not take any drugs except for iron and vitamins. GYNECOLOGIC HISTORY: She had menarche at the age of 9, every 28 days interval, 3 to 4 days duration , and moderate in amount. FAMILY HISTORY: Noncontributory. PAST OBSTETRICAL HISTORY: She is 3, para 2. The first delivery was in 2010, second in 2017. All normal deliveries. REVIEW OF SYSTEMS: CARDIOVASCULAR: No chest pains. RESPIRATORY: No cough. GASTROINTESTINAL: No diarrhea, no vomiting. GENITOURINARY: No dysuria. PHYSICAL EXAMINATION: GENERAL: Reveals a conscious, coherent lady and in no acute distress. VITAL SIGNS: Her blood pressure 120/80, pulse rate 80 per minute, respirations 16 per minute. BREASTS, HEART AND LUNGS: Within normal limits. ABDOMEN: Soft. No organomegaly. Fundic height 37 cm. heart tones 140 per minute. PELVIC: On admission at 6:30 p.m. done by me revealed the cervix to be 3 cm dilated, 100% effaced, station 0 in cephalic presentation with a bag of water intact. EXTREMITIES: No pedal edema. ADMITTING DIAGNOSIS: A 39 and 1/7 weeks intrauterine in labor with mild -induced hypertension. PLAN: The plans of delivery were explained to the patient as to go for vaginal delivery. The risks, benefits, and alternatives to vaginal delivery and was explained to the patient and the ri sks of explained. She wanted to go for vaginal delivery. She had artificial rupture of me mbranes, little fluid came out. scalp electrodes and IPC were inserted. She was started on Pi tocin augmentation and she progressed well. She received labor epidural as well. The case was endor sed to Dr. Delan for delivery. Dictated By: LUZ QUINONES/YASH Conf#: [id number] DID#: [id number]
--- NOTE | 2019-01-22 11:27 | DELSUM ---
Delivery Summary A-C Datetime Report Generated by CPN: 01/22/2019 11:20 DELIVERY PERSONNEL Stretcher Operator: Sherlyn Ward MATERNAL INFORMATION Delivery Anesthesia: Epidural Medications in Delivery: oxytocin 30 units in LR Delivery QBL (ml): 300 Placenta Cultured: No Maternal Complications: None LABOR SUMMARY EDC: 01/23/2019 00:00 No. Babies in Womb: 1 Attempted: No Labor Anesthesia: Epidural LABOR INFORMATION Reason for Induction: Other Reason for Induction- Other: ELECTIVE Onset of Labor: 01/17/2019 18:30 Complete Dilatation: 01/18/2019 00:45 Oxytocin: Induction Group B Beta Strep: Positive Antibiotics # of Doses: AMPICILLIN X1 Antibiotics Time of Last Dose: 01/17/2019 20:23 Steroids Given: None Reason Steroids Not Administered: Not Applicable MEMBRANES Membranes Rupture Method: Artificial Rupture of Membranes: 01/17/2019 18:25 Length of Rupture (hr): 6.63 Amniotic Fluid Color: Clear Amniotic Fluid Amount: Moderate Amniotic Fluid Odor: Normal STAGES OF LABOR Stage 1 hr: 6 Stage 1 min: 15 Stage 2 hr: 0 Stage 2 min: 18 Stage 3 hr: 0 Stage 3 min: 2 Total Time in Labor hr: 6 Total Time in Labor min: 35 VAGINAL DELIVERY Episiotomy: None Laceration Extension: First Degree Laceration Type: Perineal Laceration Repair: Yes Initial Vag Sponge Count: 10 Final Vag Sponge Count: 10 Initial Vag Sharps Count: 1 Final Vag Sharps Count: 2 Sponge Count Correct: Yes Sharps Count Correct: Yes BABY A INFORMATION Delivery Date/Time: 01/18/2019 01:03 Method of Delivery: Vaginal Born in Route : No : N/A Forceps: N/A Vacuum Extraction: Successful Shoulder Dystocia : N/A ASSISTED DELIVERY BABY A Indication for Assisted Delivery: decelerations Catheter Prior to Procedure: Yes Station Vacuum/Forcep Apply: refer to md notes Position Vacuum/Forcep Apply: direct OP Vacuum Number of Pulls: 1 Vacuum Number of PopOffs: 0 Reduce Pressure btwn Ctx: No Vacuum [employer] Consultant: [employer] Total Time Vacuum Applied: 30 seconds Vacuum/Forceps Comment: refer to md notes for maximum pressure obtained and station vacuum applied SHOULDER DYSTOCIA BABY A Delivery Date/Time: 01/18/2019 01:03 PRESENTATION/POSITION BABY A Presentation: Cephalic Cephalic Presentation: Vertex Vertex Position: direct OP Breech Presentation: N/A PLACENTA INFORMATION BABY A Placenta Delivery Time : 01/18/2019 01:05 Placenta Method of Delivery: Manual Removal Placenta Status: Delivered SCORES BABY A Heart Rate 1 min: >100 bpm Resp Effort 1 min: Good Cry Reflex Irritability 1 min: Cough/Sneeze/Pulls Away Muscle Tone 1 min: Active Motion Color 1 min: Body [place], Extremit Blue Resuscitation Effort 1 min: Tactile Stimulation SCORE 1 MIN: 9 Heart Rate 5 min: >100 bpm Resp Effort 5 min: Good Cry Reflex Irritability 5 min: Cough/Sneeze/Pulls Away Muscle Tone 5 min: Active Motion Color 5 min: Body [place], Extremit Blue Resuscitation Effort 5 min: N/A SCORE 5 MIN: 9 INFANT INFORMATION BABY A Gestational Age at Delivery: 39.2 Gestational Status: Full Term- 39- 40.6 Weeks Infant Outcome : Liveborn Condition : Stable Infant Sex: Female IDENTIFICATION/MEDS BABY A ID Band Number: [id number] ID Band Location: Right Leg; Left Arm Sensor Applied: Yes Sensor Number: [id number] Sensor Location : Cord Clamp Vitamin K Given : Not Given Erythromycin Given: Not Given WEIGHT/LENGTH BABY A Birthweight (gm): 3155 Weight (lb): 6 Weight (oz): 15 Infant Length (in): 19.00 Length (cm): 48.26 CORD INFORMATION BABY A No. Cord Vessels: 3 Nuchal Cord : N/A Cord Blood Taken: Yes Banking/Donate Info: n/a Suction: Mouth; Nose ASSESSMENT BABY A Complications: Multiple Variable Decels Physical Findings at Delivery: Other Physical Findings- Other: indentation where vacuum was applied Respirations: Appears Normal Stage Driver/ALS Called : No Care By: jeana ROSEN Transferred To: Remains with Mother
--- NOTE | 2019-01-27 04:17 | DS ---
DATE OF ADMISSION: 01/17/2019 DATE OF DISCHARGE: 01/20/2019 This is a 28-year-old lady, 3, para 2, EDC of 01/23/2019 at 39-1/7 weeks, admitted in early l abor with mild -induced hypertension. HISTORY OF PRESENT ILLNESS: See dictated history and physical. PHYSICAL EXAMINATION: See dictated history and physical. ADMITTING DIAGNOSIS: A 39 and 1/7 weeks intrauterine in labor with mild -induced hypertension. HOSPITAL COURSE: The patient progressed well and she was given Pitocin augmentation. She progressed well and she was delivered. She had a normal spontaneous vaginal delivery, delivered by ____. She tolerated the delivery well. She did have good course. She had good bowel movement p ostpartum. She was discharged home on the second day on general diet and activity was res tricted. She was counseled. She was instructed. She was told to continue to take her iron and beverly mins at home. Hematocrit on discharge was 33.2 and hemoglobin 11.4. FINAL DIAGNOSES:1. A 39 and 2/7 weeks intrauterine in labor, delivered, mild -ind uced hypertension. Dictated By: LUZ QUINONES/YASH Conf#: [id number] DID#: [id number]
== END 2019-01-20 13:45 | disposition home or self-care (01) | DRG 807 ==
LOC: L-D 17:04 → PP1 01-18 03:23
PROVIDERS: ADMIT Obstetrics & Gynecology; ATTEND Obstetrics & Gynecology
PROC: 4A1HXCZ Monitoring of Products of Conception, Cardiac Rate, External Approach (ICD-10-PCS; 2019-01-17)
PROC: 4A1H74Z Monitoring of Products of Conception, Cardiac Electrical Activity, Via Natural or Artificial Opening (ICD-10-PCS; 2019-01-17)
PROC: 10H073Z Insertion of Monitoring Electrode into Products of Conception, Via Natural or Artificial Opening (ICD-10-PCS; 2019-01-17)
PROC: 10H07YZ Insertion of Other Device into Products of Conception, Via Natural or Artificial Opening (ICD-10-PCS; 2019-01-17)
PROC: 10907ZC Drainage of Amniotic Fluid, Therapeutic from Products of Conception, Via Natural or Artificial Opening (ICD-10-PCS; 2019-01-17)
PROC: 10D07Z6 Extraction of Products of Conception, Vacuum, Via Natural or Artificial Opening (ICD-10-PCS; principal; 2019-01-18)
PROC: 0HQ9XZZ Repair Perineum Skin, External Approach (ICD-10-PCS; 2019-01-18)
PROC: 3E0234Z Introduction of Serum, Toxoid and Vaccine into Muscle, Percutaneous Approach (ICD-10-PCS; 2019-01-19)
DX: O13.4 Gestational [pregnancy-induced] hypertension without significant proteinuria, complicating childbirth (principal); Z37.0 Single live birth; O70.0 First degree perineal laceration during delivery; Z3A.39 39 weeks gestation of pregnancy; O76 Abnormality in fetal heart rate and rhythm complicating labor and delivery; Z23 Encounter for immunization
CPT/HCPCS: 62319; 85014; 85018; 85025; 85610; 85730; 86592; 86850; 86900; 86901; 87340; 90686; J0290; J2590; J3010; J7120